=== PATIENT | male | born 1940 | race Caucasian/White ===

== ENCOUNTER 2020-10-24 07:29 | Outpatient (CLI) | payer MEDICARE, BC | END 2020-10-24 07:30 | disposition home or self-care (01) | LOC: CSHULT 07:29 | PROVIDERS: ATTEND Internal Medicine Gastroenterology | DX: R10.9 Unspecified abdominal pain (principal); N28.1 Cyst of kidney, acquired | CPT/HCPCS: 93975 ==

== ENCOUNTER 2022-09-27 08:57 | Emergency (ER) | payer MEDICARE, BC | END 2022-09-27 10:39 | disposition home or self-care (01) | LOC: CSHERS 08:57 | DX: R58 Hemorrhage, not elsewhere classified (principal); I10 Essential (primary) hypertension; M79.89 Other specified soft tissue disorders; M79.604 Pain in right leg ==